=== PATIENT | male | born 1985 | race Caucasian/White ===

== ENCOUNTER 2018-11-03 09:25 | Outpatient (CLI) | payer OTHER, MEDICARE, MEDICAID, SELFPAY ==
[2018-11-03 12:14] LABS: Hemoglobin A1C 5.6 % (4.5-6.2)
[2018-11-03 13:15] LABS: ALT 56 U/L (12-78); AST 25 U/L (15-37); Albumin 4.7 g/dL (3.4-5.0); Alkaline Phosphatase 80 U/L (46-116); BUN 10 mg/dL (7-18); Bilirubin, Total 1.2 mg/dL (0.2-1.0); CREATININE 0.82 mg/dL (0.70-1.30); Calcium 9.2 mg/dL (8.5-10.1); Calculated LDL 68 mg/dL; Chloride 104 mmol/L (98-107); Cholesterol 150 mg/dL (50-200); Folate 16.6 ng/mL (8.6-20.0); Glucose 107 mg/dL (70-100); HDL Cholesterol 28 mg/dL (40-60); Potassium 4.1 mmol/L (3.5-5.1); Sodium 142 mmol/L (136-145); Total Protein 7.5 g/dL (6.4-8.2); Triglyceride 274 mg/dL (30-150)
== END 2018-11-03 09:45 ==
PROVIDERS: PCP Family Medicine; Visit Provider Family Medicine
DX: F90.0 Attention-deficit hyperactivity disorder, predominantly inattentive type (principal); I10 Essential (primary) hypertension; Z83.3 Family history of diabetes mellitus
CPT/HCPCS: 36415; 80053; 80061; 83721; 82746; 83036

== ENCOUNTER 2020-02-09 02:03 | Outpatient (CLI) | payer OTHER, MEDICARE, MEDICAID, SELFPAY ==
[2020-02-09 13:09] LABS: ALT 66 U/L (16-63); AST 28 U/L (15-37); Albumin 4.9 g/dL (3.4-5.0); Alkaline Phosphatase 58 U/L (46-116); Anion Gap 7.6 mmol/L (3-11); BUN 17 mg/dL (7-18); Bilirubin, Total 0.7 mg/dL (0.2-1.0); CO2 29.4 mmol/L (21.0-32.0); CREATININE 0.86 mg/dL (0.70-1.30); Calcium 9.5 mg/dL (8.5-10.1); Calculated LDL 75 mg/dL (<100); Chloride 103 mmol/L (98-107); Cholesterol 162 mg/dL (<200); Glucose 112 mg/dL (74-106); HDL Cholesterol 26 mg/dL (40-60); Sodium 140 mmol/L (136-145); Total Protein 7.5 g/dL (6.4-8.2); Triglyceride 307 mg/dL (<150)
== END 2020-02-09 02:23 ==
PROVIDERS: PCP Family Medicine; Visit Provider Family Medicine
DX: I10 Essential (primary) hypertension (principal); Z82.49 Family history of ischemic heart disease and other diseases of the circulatory system
CPT/HCPCS: 36415; 80053; 80061

== ENCOUNTER 2020-07-12 02:05 | Outpatient (CLI) | payer OTHER, MEDICARE, MEDICAID, SELFPAY ==
[2020-07-12 12:41] LABS: Cholesterol 165 mg/dL (<200); HDL Cholesterol 29 mg/dL (40-60); Triglyceride 417 mg/dL (<150)
[2020-07-12 12:52] LABS: LDL CHOLESTEROL 89 mg/dL (<100)
== END 2020-07-12 02:06 | disposition home or self-care (01) ==
LOC: LOS 02:05
PROVIDERS: PCP Family Medicine; Visit Provider Family Medicine
DX: E78.5 Hyperlipidemia, unspecified (principal); Z82.49 Family history of ischemic heart disease and other diseases of the circulatory system
CPT/HCPCS: 36415; 80061; 83721

== ENCOUNTER 2021-01-15 04:00 | Outpatient (CLI) | payer OTHER, MEDICARE, MEDICAID, SELFPAY ==
[2021-01-15 13:01] LABS: Calculated LDL 58 mg/dL (<100); Cholesterol 135 mg/dL (<200); HDL Cholesterol 32 mg/dL (40-60); Triglyceride 228 mg/dL (<150)
== END 2021-01-15 04:01 | disposition home or self-care (01) ==
LOC: LOS 04:01
PROVIDERS: PCP Nurse Practitioner Family; Visit Provider Nurse Practitioner Family
DX: I10 Essential (primary) hypertension (principal)
CPT/HCPCS: 36415; 80061

== ENCOUNTER 2021-11-19 02:39 | Outpatient (CLI) | payer OTHER, MEDICARE, MEDICAID, SELFPAY ==
[2021-11-19 12:41] LABS: Anion Gap 13.4 mmol/L (3-11); BUN 11 mg/dL (7-18); CO2 24.6 mmol/L (21.0-32.0); CREATININE 0.8 mg/dL (0.70-1.30); Calcium 9.5 mg/dL (8.5-10.1); Chloride 104 mmol/L (98-107); Glucose 194 mg/dL (74-106); Potassium 4.1 mmol/L (3.5-5.1); Sodium 142 mmol/L (136-145)
== END 2021-11-19 02:40 | disposition home or self-care (01) ==
PROVIDERS: PCP Nurse Practitioner Family; Visit Provider Nurse Practitioner Family
DX: I10 Essential (primary) hypertension (principal)
CPT/HCPCS: 36415; 80048

== ENCOUNTER 2022-01-06 03:22 | Outpatient (CLI) | payer OTHER, MEDICARE, MEDICAID, SELFPAY ==
[2022-01-06 12:57] LABS: Hemoglobin A1C 6.1 % (<5.7)
== END 2022-01-06 03:23 | disposition home or self-care (01) ==
PROVIDERS: PCP Nurse Practitioner Family; Visit Provider Nurse Practitioner Family
DX: R73.9 Hyperglycemia, unspecified (principal)
CPT/HCPCS: 36415; 83036

== ENCOUNTER 2022-04-06 03:19 | Outpatient (CLI) | payer OTHER, MEDICARE, MEDICAID, SELFPAY ==
[2022-04-06 12:38] LABS: CREATININE 0.8 mg/dL (0.70-1.30); Calculated LDL 41 mg/dL (<100); Cholesterol 137 mg/dL (<200); Estimated GFR 118.36 (mL/min/1.73m2); HDL Cholesterol 37 mg/dL (40-60); Triglyceride 295 mg/dL (<150)
== END 2022-04-06 03:20 | disposition home or self-care (01) ==
LOC: LOS 03:19
PROVIDERS: PCP Nurse Practitioner Family; Visit Provider Nurse Practitioner Family
DX: E78.5 Hyperlipidemia, unspecified (principal); I10 Essential (primary) hypertension; R35.0 Frequency of micturition; Z12.5 Encounter for screening for malignant neoplasm of prostate
CPT/HCPCS: 36415; 80061; 84153; 82565; 84132

== ENCOUNTER 2023-07-28 05:09 | Outpatient (CLI) | payer OTHER, MEDICARE, MEDICAID, SELFPAY ==
[2023-07-28 12:59] LABS: CREATININE 0.9 mg/dL (0.70-1.30); Calculated LDL 16 mg/dL (<100); Cholesterol 127 mg/dL (<200); Estimated GFR 112.81 (mL/min/1.73m2); HDL Cholesterol 32 mg/dL (40-60); Potassium 4.2 mmol/L (3.5-5.1); Triglyceride 395 mg/dL (<150)
== END 2023-07-28 05:10 | disposition home or self-care (01) ==
LOC: LOS 05:09
PROVIDERS: PCP Nurse Practitioner Family; Visit Provider Nurse Practitioner Family
DX: I10 Essential (primary) hypertension (principal); E78.5 Hyperlipidemia, unspecified
CPT/HCPCS: 36415; 80061; 82565; 84132

== ENCOUNTER 2024-08-11 00:59 | Outpatient (CLI) | payer OTHER, MEDICARE, MEDICAID, SELFPAY ==
[2024-08-11 12:48] LABS: Calculated LDL 35 mg/dL (<100); Cholesterol 129 mg/dL (<200); HDL Cholesterol 34 mg/dL (>or=40); Triglyceride 300 mg/dL (<150)
== END 2024-08-11 01:00 | disposition home or self-care (01) ==
LOC: LOS 01:00
PROVIDERS: PCP Nurse Practitioner Family; Visit Provider Nurse Practitioner Family
DX: Z13.1 Encounter for screening for diabetes mellitus (principal); Z13.220 Encounter for screening for lipoid disorders
CPT/HCPCS: 36415; 80061; 83036

== ENCOUNTER 2025-04-10 00:47 | Outpatient (CLI) | payer OTHER, MEDICARE, SELFPAY ==
[2025-04-10 14:24] LABS: Anion Gap 8.3 mmol/L (3-11); BUN 9 mg/dL (9-23); CO2 26.7 mmol/L (20.0-31.0); Calcium 9.2 mg/dL (8.3-10.6); Chloride 105 mmol/L (98-107); Glucose 284 mg/dL (74-106); Potassium 3.9 mmol/L (3.5-5.1); Sodium 140 mmol/L (136-145)
== END 2025-04-10 00:48 | disposition home or self-care (01) ==
PROVIDERS: PCP Nurse Practitioner Family; Visit Provider Nurse Practitioner Family
DX: I10 Essential (primary) hypertension (principal)
CPT/HCPCS: 36415; 80048